=== PATIENT | male | born 1965 | race Caucasian/White ===

== ENCOUNTER → 2024-04-01 | Outpatient (CLI) | payer BC ==
--- NOTE | 2024-04-02 07:40 | XR ---
EXAMINATION TYPE: XR shoulder complete RT DATE OF EXAM: 04/01/2024 CLINICAL HISTORY: pain TECHNIQUE: Three views of the right shoulder are obtained. COMPARISON: None FINDINGS: There is no acute fracture/dislocation evident. The acromioclavicular and glenohumeral tiffani int spaces appear mildly narrowed. The visualized ribs are intact and unremarkable. IMPRESSION: 1. There is no acute fracture or dislocation. ICD 10 NO FRACTURE, INITIAL EVALUATION
== END | disposition home or self-care (01) ==
LOC: RADXRYALE 16:37
PROVIDERS: ATTEND Physician Assistant
DX: M25.511 Pain in right shoulder (principal)

== ENCOUNTER → 2024-12-21 | Outpatient (CLI) | payer BC ==
--- NOTE | 2024-12-21 16:35 | XR ---
EXAMINATION TYPE: XR Hip Complete LT DATE OF EXAM: 12/21/2024 4:26 PM COMPARISON: None. CLINICAL INDICATION: Male, 59 years old with history of [id number] LT HIP PAIN, pain TECHNIQUE: XR Hip Complete LT XX views were obtained. FINDINGS: There is no acute fracture/dislocation evident. The joint space appears within normal limits. The o verlying soft tissue appears unremarkable. IMPRESSION: No acute fracture or dislocation. [facility], , 12/21/2024 4:33 PM
== END | disposition home or self-care (01) ==
LOC: RADXRYALE 16:12
PROVIDERS: ATTEND Physician Assistant
DX: M25.552 Pain in left hip (principal)
CPT/HCPCS: 73502